=== PATIENT | male | born 1975 | race Caucasian/White ===

== ENCOUNTER 2016-10-22 01:18 | Emergency (ER) | payer SELFPAY ==
[2016-10-22 01:21] VITALS: BP 154/95; PULSE 110; RESP 16; TEMP 98.5; O2SAT 100
[2016-10-22 01:27] VITALS: BP 147/84; RESP 16; TEMP 96.7; O2SAT 100
== END 2016-10-22 01:53 | disposition left against medical advice (07) ==
LOC: NED 01:18
DX: M79.603 Pain in arm, unspecified (principal); Z53.21 Procedure and treatment not carried out due to patient leaving prior to being seen by health care provider
CPT/HCPCS: 99281